=== PATIENT | male | born 1965 | race Two or more races ===

== ENCOUNTER 2021-06-28 10:00 | Inpatient (IN) | payer OTHER ==
[~2021-06-28] VITALS: Ht 177.8 cm; Wt 74.4 kg
[2021-07-04] MEDS ORDERED: OXYC1TAB9 PO (11:01)
[2021-07-04] MEDS ORDERED: HYOSCYAMINE0.125 M1 SL (11:01)
== END 2021-07-04 14:24 | disposition home or self-care (01) | DRG 331 ==
LOC: EDSTATUS 10:00 → ADM 10:00 → O/R 06-30 05:45 → SURH 06-30 05:45
PROVIDERS: ADMIT Surgery; ATTEND Surgery
PROC: 07BD4ZX Excision of Aortic Lymphatic, Percutaneous Endoscopic Approach, Diagnostic (ICD-10-PCS; 2021-06-30)
PROC: 3E0F7SF Introduction of Other Gas into Respiratory Tract, Via Natural or Artificial Opening (ICD-10-PCS; 2021-06-30)
PROC: 0DBN4ZZ Excision of Sigmoid Colon, Percutaneous Endoscopic Approach (ICD-10-PCS; principal; 2021-06-30 12:15)
DX: D12.0 Benign neoplasm of cecum (principal)